=== PATIENT | female | born 1950 | race Caucasian/White ===

== ENCOUNTER → 2021-05-23 14:40 | Outpatient (CLI) | payer SELFPAY, OTHER ==
--- NOTE | 2021-05-23 14:45 | VDLE_ITS ---
Reason For Study: Left lower leg pain RIGHT LEFT CFV is compressible, spontaneous, phasic, GSV is normal. competent and demonstrates normal CFV is compressible, spontaneous, phasic, augmentation. competent, and demonstrates normal Procedure augmentation. This is a venous duplex using B-mode, color FV is compressible, spontaneous, phasic, flow and spectral Doppler. competent and demonstrates normal Exam performed in department. augmentation. A preliminary report was called and/or faxed POP V is compressible, spontaneous, phasic, to RN at [facility]. competent and demonstrates normal Pt to follow up with PCP, [facility] augmentation. calling PCP with results. T/P Trunk is compressible. LT PerV is compressible. Acute deep vein thrombosis is noted in the PTV mid. VL/Venous Duplex US, Unilateral Interpretation Summary Acute deep vein thrombosis is noted in the left posterior tibial vein. The jyotsna tyesha of the left lower extremity deep venous system is patent and compressible. Valvular compete nce appears intact within the proximal deep venous system on the left . The left great saphenous v ein appears patent and compressible segmentally. Ordering Physician: Mikey Hou Referring Physician: Milo Aden Performed By: Doreen Burton RVT
== END ==
PROVIDERS: PCP Family Medicine; Referring Provider Physician Assistant; Visit Provider Physician Assistant
DX: I82.442 Acute embolism and thrombosis of left tibial vein (principal)
CPT/HCPCS: 93971

== ENCOUNTER 2021-07-09 12:47 | Outpatient (CLI) | payer SELFPAY ==
--- NOTE | 2021-07-09 13:05 | RAD_ITS ---
STUDY: X-RAY - THORACIC SPINE REASON FOR EXAM: Female, 71 years old. Status post fall. Back pain. TECHNIQUE: 3 view(s) of the thoracic spine were obtained. COMPARISON: None. FINDINGS: Normal kyphosis of the thoracic spine. There is a mild dextroscoliosis with the convexity at T5. Minimal endplate spondylosis and disc space narrowing at multiple levels. There is no evidence of acute fracture or loss of vertebral axial height. The soft tissue structures are unremarkable. RAD/Thoracic Spine 3 Views IMPRESSION: Levoscoliosis with mild degenerative changes of the thoracic spine. There is no acute fracture or subluxation. Electronically Signed: Henry Harper DO at 16:51 EST Tel [phone], Service support ,
--- NOTE | 2021-07-09 13:23 | RAD_ITS ---
STUDY: X-RAY - LUMBAR SPINE REASON FOR EXAM: Female, 71 years old. Fall. Pain. TECHNIQUE: 4 view(s) of the lumbar spine were obtained. COMPARISON: None FINDINGS: There is an exaggerated lumbar lordosis. There is no substantial scoliosis. There appears to be mild anterolisthesis of L4 on L5. The alignment is otherwise preserved. Normal vertebral bodies and endplates. Normal disc space heights. There is no evidence of acute fracture or loss of vertebral axial height.. There is degenerative facet disease. There is no demonstrated spondylolysis of the pars interarticulares. The soft tissue structures are unremarkable. RAD/L/S Spine Min 4 Views IMPRESSION: Degenerative facet disease with anterolisthesis of L4 and L5. There is no visualized pars defect. Electronically Signed: Henry Harper DO at 16:55 EST Tel [phone], Service support ,
== END 2021-07-09 23:59 | disposition short-term general hospital (02) ==
PROVIDERS: PCP Family Medicine; Referring Provider Nurse Practitioner Family; Visit Provider Nurse Practitioner Family
DX: M54.9 Dorsalgia, unspecified (principal)
CPT/HCPCS: 72072; 72110